=== PATIENT | female | born 1985 | race Hispanic/Latino ===

== ENCOUNTER 2017-03-15 15:07 | Emergency (ER) | payer SELFPAY ==
[2017-03-15 15:58] VITALS: BP 112/83
[2017-03-15] MEDS ORDERED: TYLENOL ONE (16:47)
[2017-03-15] MEDS ORDERED: TYLENOL PO ONE (16:50)
== END 2017-03-15 17:30 | disposition left against medical advice (07) ==
LOC: ED 15:07
DX: S99.922A Unspecified injury of left foot, initial encounter (principal); J45.909 Unspecified asthma, uncomplicated; F90.9 Attention-deficit hyperactivity disorder, unspecified type; F17.200 Nicotine dependence, unspecified, uncomplicated; Z88.1 Allergy status to other antibiotic agents; W19.XXXA Unspecified fall, initial encounter; Y93.89 Activity, other specified; Y99.9 Unspecified external cause status; Y92.89 Other specified places as the place of occurrence of the external cause; Z53.21 Procedure and treatment not carried out due to patient leaving prior to being seen by health care provider